=== PATIENT | male | born 1940 | race Caucasian/White ===

== ENCOUNTER → 2016-11-28 08:18 | Outpatient (CLI) | payer MEDICARE ==
[2011-10-30 11:46] VITALS: BMI 34.9
== END | disposition home or self-care (01) ==
LOC: D.MRI 08:18
DX: R51 Headache (principal)

== ENCOUNTER → 2017-07-03 10:47 | Outpatient (CLI) | payer MEDICARE ==
[2011-10-30 11:46] VITALS: BMI 34.9
--- NOTE | 2017-07-07 07:29 | EEG ---
PATIENT:RICHY GALLARDO DATE OF SERVICE: 07/03/17 MEDICAL RECORD: [id number] DATE OF : 38 LOCATION: [facility] ADMISSION DATE: 07/03/17 REFERRING PHYSICIAN: INTERPRETING PHYSICIAN: MARGARITO ANDERSON MD DATE OF SERVICE: 07/03/[address] Nair as an outpatient. ELECTROENCEPHALOGRAM NUMBER: [id number]. DATE OF EXAMINATION: 07/03/2017 at 11:30 a.m. TECHNICAL DATA: This electroencephalographic recording consists of approximately 20 minutes of data collection utilizing the international 10/20 system of electrode placement and both referential and non-referential montages. Sixteen channels of electrocerebral recording are accompanied by a 17th channel dedicated to the electrocardiographic rhythm and 2 channels of electromyographic recording. Recording is performed in the awake and drowsy states utilizing activation by photic stimulation. ELECTROENCEPHALOGRAPHIC DATA: The awake state comprises approximately 70% of the recorded electrocerebral activity. Electromyographic artifact is prominent and rapid eye movements are seen. The posterior dominant background consists of a symmetric semi-arrhythmic waxing and waning 6-7 Hz theta activity, which is suppressed by eye opening. The drowsy state comprises the remaining portion of the recorded electrocerebral activity. Electromyographic artifact is diminished and rapid eye movements are not seen. The posterior dominant background is relatively suppressed. Also seen is an intermittent, irregular, generalized and symmetric 2-3 Hz delta slowing, which occurs for periods of 1-2 seconds approximately once every 1-2 pages. No focal slowing is identified. No epileptiform discharges are seen. Photic stimulation induces no abnormal change in the recorded electrocerebral activity. INTERPRETATION: Background slow (awake and drowsy). This electroencephalographic recording is indicative of a mild diffuse encephalopathy. TRANSINT:[id number] Voice Confirmation ID: [id number] DOCUMENT ID: [id number] ELECTROENCEPHALOGRAM REPORT [id number] RICHY GALLARDO DONALD P MD at 0729 CC: [id number] DICTATION DATE: 07/04/17804 DEPARTMENT SUPERVISOR: 07/04/17903 DEP CLI 07/03/17 [place] [address]
== END | disposition home or self-care (01) ==
LOC: D.CN 10:47
DX: R25.1 Tremor, unspecified (principal)